=== PATIENT | male | born 1970 | race Caucasian/White ===

== ENCOUNTER 2019-06-09 00:11 | Emergency (ER) | payer OTHER ==
[~2019-06-09] VITALS: Ht 165.1 cm; Wt 79.8 kg
--- NOTE | 2019-06-09 00:26 | NUR ---
PT TAKEN TO BED 6
[2019-06-09 00:27] VITALS: BP 133/78
--- NOTE | 2019-06-09 00:36 | NUR ---
Dr. Winston examining patient.
[2019-06-09] MEDS ORDERED: KETOROLAC 30 MG/ML VIAL IVP ONE (00:40)
[2019-06-09] MEDS ORDERED: NACL 0.9% 1,000 ML IV ONE (00:40)
[2019-06-09] MEDS ORDERED: ASPIRIN 81 MG TAB.CHEW PO ONE (00:40)
--- NOTE | 2019-06-09 00:40 | NUR ---
48 YO MALE BIB SELF C/C OF 6/10 LEFT CHEST PAIN X3 DAYS. PT STATES THE PAIN DOES NOT RADIATE ANYWHERE AND FEELS LIKE A "POKING TIGHTNESS." PT STATES HE TOOK 600MG IBUPROFEN THIS MORNING AND 2 HOURS AGO WITH NO RELEIF OF PAIN. DENIES N/V/D. DENIES TRAVEL, COUGH, SOB, AND FEVER. PT PLACED ON BENEFIT DIRECTOR. SIDE RAILS X1. NKA NO RX NO MED HX
[2019-06-09 00:51] LABS: BASOPHILS # (AUTO) 0.1 K/uL (0.00-0.22); BASOPHILS % (AUTO) 0.5 % (0.0-2.0); EOSINOPHILS # (AUTO) 0.1 K/uL (0-0.4); EOSINOPHILS % (AUTO) 0.7 % (0.0-4.0); LYMPHOCYTES # (AUTO) 2.7 K/uL (2.0-11.5); LYMPHOCYTES % (AUTO) 26.8 % (20.5-51.1); MEAN CORPUSCULAR HEMOGLOBIN 31 pg (27-31); MEAN CORPUSCULAR HGB CONC 33 g/dL (33-37); MEAN CORPUSCULAR VOLUME 93.9 fL (80-94); MONOCYTES # (AUTO) 0.6 K/uL (0.8-1.0); MONOCYTES % (AUTO) 6.4 % (1.7-9.3); NEUTROPHILS # (AUTO) 6.5 K/uL (1.8-7.7); NEUTROPHILS % (AUTO) 65.6 % (42.2-75.2); PLATELET COUNT (AUTO) 272 K/uL (140-450); RED BLOOD CELL COUNT(AUTO) 4.48 MIL/uL (4.20-6.10); RED CELL DISTRIBUTION WIDTH 13.3 % (11.6-13.7); WHITE BLOOD COUNT (AUTO) 9.9 K/uL (4.8-10.8)
--- NOTE | 2019-06-09 01:00 | NUR ---
X-Ray at bedside.
[2019-06-09 01:05] LABS: ALBUMIN 4.2 g/dL (3.4-5.0); ANION GAP 11.2 (8-16); CARBON DIOXIDE 30.3 mmol/L (21-32); POTASSIUM 3.5 mmol/L (3.5-5.1); TOTAL BILIRUBIN 0.4 mg/dL (0.0-1.0)
[2019-06-09 01:37] VITALS: BP 133/78
--- NOTE | 2019-06-10 12:59 | NUR ---
Late entry. Confirmed with RN that 0.9 NS IV completed at 0125
== END 2019-06-09 01:26 | disposition home or self-care (01) ==
LOC: MED 00:11
DX: S29.019A Strain of muscle and tendon of unspecified wall of thorax, initial encounter (principal); X58.XXXA Exposure to other specified factors, initial encounter; Y93.89 Activity, other specified; Y92.89 Other specified places as the place of occurrence of the external cause; Y99.8 Other external cause status
CPT/HCPCS: 36415; 71045; 80053; 84484; 85025; 93005; 96374; 99285; J1885; J7030; Q0092

== ENCOUNTER 2021-03-14 09:03 | Emergency (ER) | payer OTHER ==
[~2021-03-14] VITALS: Ht 165.1 cm; Wt 77.1 kg
[2021-03-14 09:07] VITALS: BP 145/100
[2021-03-14] MEDS ORDERED: KETOROLAC 60 MG/2 ML VIAL IM ONE (09:40)
[2021-03-14] MEDS ORDERED: IBUP-2213 PO (09:54)
[2021-03-14] MEDS ORDERED: ACET-8386 PO (09:54)
[2021-03-14] MEDS ORDERED: ONDA8TAB87 PO (10:28)
[2021-03-14 10:31] VITALS: BP 145/100
--- NOTE | 2021-03-14 10:32 | NUR ---
NO NURSING INTERVENTIONS PROVIDED
--- NOTE | 2021-03-14 10:32 | NUR ---
Patient discharged with v/s stable. Written and verbal after care instructions given and explained. Patient alert, oriented and verbalized understanding of instructions. Ambulatory with steady gait. All questions addressed prior to discharge. ID band removed. Patient advised to follow up with PMD. Rx of ZOFRAN, IBUPROFEN, HYDROCODONE given. Patient educated on indication of medication including possible reaction and side effects. Opportunity to ask questions provided and answered.
== END 2021-03-14 10:31 | disposition home or self-care (01) ==
LOC: MED 09:03
DX: R07.89 Other chest pain (principal)
CPT/HCPCS: 96372; 99283; J1885; 93005